=== PATIENT | male | born 2000 | race Caucasian/White ===

== ENCOUNTER 2023-06-04 12:17 | Emergency (ER) | payer OTHER, SELFPAY ==
[2023-06-04 12:26] VITALS: BP 184/89; PULSE 69; RESP 16; TEMP 37; O2SAT 99; BMI 32.5
[2023-06-04 13:02] VITALS: BP 122/63; PULSE 60; RESP 18; O2SAT 98
--- NOTE | 2023-06-04 13:05 | PC.NURSE ---
Patient reports feeling a burning chest pain on right side when he laughs or burps and that it radiates pain all the way up the right side of his neck. Ellen ruff.
[2023-06-04 13:12] LABS: Add Manual Diff / Slide Review NO; Basophils Absolute Auto 0 /uL (0-100); Basophils Percent Auto 0.3 % (0-2); Eosinophils Absolute Auto 100 /uL (0-450); Eosinophils Percent Auto 1.6 % (2-4); Hematocrit 41.2 % (41-53); Hemoglobin 14.2 g/dL (13.5-17.5); Lymphocytes Absolute Auto 1900 /uL (1100-4500); Lymphocytes Percent Auto 27.4 % (25-40); Mean Corpuscular HGB Conc 34.3 % (30-36); Mean Corpuscular Hemoglobin 30.4 PG (26-34); Mean Corpuscular Volume 88.5 fL (80-100); Monocytes Absolute Auto 500 /uL (0-900); Neutrophils Absolute Auto 4400 /uL (1500-7000); Neutrophils Percent Auto 63.7 % (50-75); Platelet Count 205 X10^3/uL (150-400); Red Blood Cell Count 4.66 X10^6/uL (4.5-5.9); Red Cell Distribution Width 13.1 % (11.6-14.8); White Blood Cell Count 6.8 X10^3/uL (4.5-11.0)
[2023-06-04 13:28] LABS: Alanine Aminotransferase 32 IU/L (<50); Albumin 4.5 g/dL (3.5-5.0); Albumin Globulin Ratio 1.4 (1.0-2.8); Alkaline Phosphatase 74 U/L (38-126); Aspartate Aminotransferase 32 IU/L (17-59); BUN Creatinine Ratio 14.8 (6-22); Bilirubin Total 0.8 mg/dL (0.2-1.3); Blood Urea Nitrogen 16 mg/dL (9-20); Calcium 9.2 mg/dL (8.4-10.2); Carbon Dioxide 26 mmol/L (22-32); Chloride 105 mmol/L (98-107); Creatine Kinase 163 U/L (55-170); Estimated Glomerular Filt Rate > 60 mL/min (>60); Globulin 3.2 g/dL (1.7-4.1); Glucose 89 mg/dL (70-100); HEMOLYSIS < 15 (0-50); Potassium 3.7 mmol/L (3.4-5.1); Sodium 138 mmol/L (137-145); Total Protein 7.7 g/dL (6.3-8.2)
[2023-06-04 13:34] VITALS: BP 111/61; PULSE 60; RESP 20; O2SAT 98
[2023-06-04 13:37] LABS: Troponin I < 0.012 ng/mL (0.01-0.034)
--- NOTE | 2023-06-04 13:59 | ED_ITS ---
<Statement entered by Mauricio Barlow MD - 06/04/23 18:14> I was available for consultation during this patient's time in the ER but not consulted. My review of this chart is my first interaction with this patient's presentation. HPI - Burn/Smoke Inhalation General Chief complaint: Burn/Smoke Inhalation Stated complaint: electric shock Time Seen by Provider: 06/04/23 13:01 Source: patient Mode of arrival: Ambulatory History of Present Illness HPI Narrative: 22-year-old male with no reported past medical history presents to the ED status post a electrical shock injury sustained at work just prior to arrival. Patient is in the [employer], was working on a jet with some wet equipment when he accidentally sustained an electric shock to his right hand. Patient states it was very brief and lasted literally half a second. Patient denies any chest pain, shortness of breath, nausea, vomiting, ruano. No loss of consciousness. Patient does endorse some muscle soreness going from his right hand all the way up to his right shoulder and neck. Related Data Allergies Allergy/AdvReac Type Severity Reaction Status Date / Time Penicillins Allergy Verified 06/04/23 12:32 Review of Systems Constitutional Constitutional: Denies chills, Denies fatigue, Denies fever(s), Denies frequent falls, Denies lethargy and Denies weakness Eyes Eyes: Denies change in vision, Denies eye discharge, Denies irritation and Denies loss of vision ENT Ears, Nose, Mouth, and Throat: Denies change in voice, Denies dizziness, Denies neck pain, Denies sore throat and Denies throat swelling Cardiovascular Cardiovascular: Denies chest pain, Denies irregular heart rhythm, Denies lightheadedness, Denies palpitations, Denies dyspnea, Denies dyspnea on exertion and Denies orthopnea Respiratory Respiratory: Denies cough, Denies dyspnea, Denies dyspnea on exertion and Denies wheezing Gastrointestinal Gastrointestinal: Denies abdominal pain, Denies change in bowel habits, Denies diarrhea, Denies nausea and Denies vomiting Musculoskeletal Musculoskeletal: Denies neck pain and Denies numbness Comments: Right arm and shoulder pain Integumentary/Breasts Skin/Breast: Denies pruritus, Denies erythema, Denies rash and Denies wounds Neurologic Neurologic: Denies behavioral changes, Denies confusion, Denies dizziness, Denies frequent falls, Denies loss of vision, Denies numbness and Denies weakness Psychiatric Psychiatric: Denies anxiety, Denies behavioral changes, Denies confusion, Denies depression, Denies homicidal ideation and Denies suicidal ideation Endocrine Endocrine: Denies fatigue, Denies flushing and Denies palpitations Hematologic/Lymphatic Hematologic/Lymphatic: Denies easy bruising Allergic/Immunologic Allergic/Immunologic: Denies urticaria, Denies throat swelling and Denies wheezing Patient History Social History Smoking Status: Never smoker Smoking Status: Never smoker Substance Use Type: does not use Exam Narrative Exam Narrative: Const General:?cooperative, healthy appearing and comfortable [facility] Head:?normal to inspection Ears:?hearing grossly normal bilaterally Nose:?external nose normal Face and sinus:?normal facial exam and sinuses nontender Mouth:?oral mucosae normal Throat:?posterior oropharynx normal Eyes General:?appearance normal, both eyes and all related structures Neck Neck:?normal visual inspection and no lymphadenopathy noted Resp Effort & Inspection:?normal respiratory effort Auscultation:?clear to auscultation bilaterally Cardio Rate:?regular rate Rhythm:?regular rhythm Musculoskeletal There is full range of motion of right arm and shoulder. No bruising, deformities, swelling, tenderness to palpation. No burn injuries noted. Neurovascularly intact. Neuro General:?patient alert, patient awake and patient oriented x3 Initial Vital Signs Initial Vital Signs: Vital Signs Temperature 98.6 F 06/04/23 12:26 Pulse Rate 69 06/04/23 12:26 Respiratory Rate 16 06/04/23 12:26 Blood Pressure 184/89 H 06/04/23 12:26 Pulse Oximetry 99 06/04/23 12:26 Oxygen Delivery Method Room Air 06/04/23 12:26 Course Orders Ordered: ED Orders 06/04/23 12:37 EKG-12 Lead Stat 06/04/23 12:51 Complete Blood Count AUTO DIFF Stat Comprehensive Metabolic Panel Stat Creatine Kinase Stat Troponin I Stat 06/04/23 13:10 Urinalysis and Microscopic Stat Vital Signs Vital signs: Vital Signs - 8 hr 06/04/23 12:26 06/04/23 13:02 06/04/23 13:34 Temperature 98.6 F Pulse Rate 69 60 60 Respiratory Rate 16 18 20 Blood Pressure 184/89 H 122/63 111/61 Pulse Oximetry 99 98 98 Oxygen Delivery Method Room Air Room Air Room Air 06/04/23 14:10 Temperature Pulse Rate 60 Respiratory Rate 15 Blood Pressure 124/67 Pulse Oximetry 99 Oxygen Delivery Method Room Air MDM - Burn/Smoke Inhalation Lab Data 06/04/23 12:51 06/04/23 12:51 Labs: Lab Results 06/04/23 06/04/23 Range/Units 12:51 13:15 WBC 6.8 (4.5-11.0) X10^3/uL RBC 4.66 (4.5-5.9) X10^6/uL Hgb 14.2 (13.5-17.5) g/dL Hct 41.2 (41-53) % MCV 88.5 (80-100) fL MCH 30.4 (26-34) PG MCHC 34.3 (30-36) % RDW 13.1 (11.6-14.8) % Plt Count 205 (150-400) X10^3/uL Neut % (Auto) 63.7 (50-75) % Lymph % (Auto) 27.4 (25-40) % [place] % (Auto) 7.0 (3-14) % Eos % (Auto) 1.6 L (2-4) % Baso % (Auto) 0.3 (0-2) % Neut # (Auto) 4400 (6389-0850) /uL Lymph # (Auto) 1900 (8144-9246) /uL [place] # (Auto) 500 (0-900) /uL Eos # (Auto) 100 (0-450) /uL Baso # (Auto) 0 (0-100) /uL Sodium 138 (137-145) mmol/L Potassium 3.7 (3.4-5.1) mmol/L Chloride 105 (98-107) mmol/L Carbon Dioxide 26 (22-32) mmol/L BUN 16 (9-20) mg/dL Creatinine 1.08 (0.66-1.25) mg/dL Estimated GFR > 60 (>60) mL/min BUN/Creatinine Ratio 14.8 (6-22) Glucose 89 (70-100) mg/dL Calcium 9.2 (8.4-10.2) mg/dL Total Bilirubin 0.8 (0.2-1.3) mg/dL AST 32 (17-59) IU/L ALT 32 (<50) IU/L Alkaline Phosphatase 74 (38-126) U/L Total Creatine Kinase 163 (55-170) U/L Troponin I < 0.012 (0.01-0.034) ng/mL Total Protein 7.7 (6.3-8.2) g/dL Albumin 4.5 (3.5-5.0) g/dL Globulin 3.2 (1.7-4.1) g/dL Albumin/Globulin Ratio 1.4 (1.0-2.8) Urine Color Yellow Urine Appearance Clear Urine pH 6.5 (4.5-8.0) Ur Specific [place] 1.015 (1.000-1.035) Urine Protein Negative (Negative) Urine Glucose (UA) Negative (Negative) g/dL Urine Ketones Negative (NEGATIVE) Urine Occult Blood Negative (Negative) Urine Nitrate Negative (Negative) Urine Bilirubin Negative (NEGATIVE) Urine Urobilinogen 0.2 (0.2) E.U./dL Ur Leukocyte Esterase Negative (NEGATIVE) Urine RBC None seen (0-5/HPF) Urine WBC None seen (0-5/HPF) Ur Squamous Epith Cells None seen (0-5/HPF) Urine Bacteria None seen (None) Ur Culture Indicated? Cult not indicated Vol Urine Centrifuged 10ml (spun) MDM Narrative Medical decision making narrative: 22-year-old male with no reported past medical history presents to the ED status post a electrical shock injury sustained at work just prior to arrival. Will will obtain cardiac workup, labs, urine, r/o rhabdomyolysis. Physical exam is reassuring for no ruano or overt injuries. There is full range of motion of right arm and shoulder. EKG is normal sinus rhythm with a ventricular rate of 66 beats per minute, QT interval of [address] T changes, no axis deviation. Troponin within normal limits. CK within normal limits. No CHRISTIANE, kidney function normal. UA without myoglobinuria. Discussed findings with patient. Recommend supportive care with ibuprofen or Tylenol. ED return precautions discussed with patient. Patient verbalized understanding. Medical records reviewed: Yes Discharge Plan Departure Patient Disposition: Home Clinical Impression: Electrical shock of hand Qualifiers: Encounter type: initial encounter Qualified Code(s): T75.4XXA - Electrocution, initial encounter Instructions: DI for Electric Shock Injuries Activity Restrictions/Additional Instructions: You were evaluated in the ED today for an electric shock that you received your right hand. Your labs, EKG and urine were normal. Your physical exam was also reassuring for no ruano and other injuries. You have some muscle soreness in your right arm and neck due to the electric shock. You may take ibuprofen or Tylenol for your symptoms. Return to the ED if you have worsening symptoms, chest pain, shortness of breath, numbness, tingling, weakness. Referrals: ProviderDhaval [Primary Care Provider] - Stand Alone Forms: Patient Portal/API
[2023-06-04 14:04] LABS: Appearance Urine UA CLEAR; Bilirubin Urine UA NEGATIVE (NEGATIVE); Color Urine UA YELLOW; Glucose Urine UA NEGATIVE (Negative); Ketones Urine UA NEGATIVE (NEGATIVE); Leukocyte Esterase Urine UA NEGATIVE (NEGATIVE); Nitrite Urine UA NEGATIVE (Negative); Occult Blood Urine UA NEGATIVE (Negative); Protein Urine UA NEGATIVE (Negative); Specific Gravity Urine UA 1.015 (1.000-1.035); Urine Volume 10mL (spun); Urobilinogen Urine UA 0.2 E.U./dL (0.2); pH Urine UA 6.5 (4.5-8.0)
[2023-06-04 14:07] LABS: Bacteria Urine None Seen; RBC Urine None Seen (0-5/HPF); WBC Urine None Seen (0-5/HPF)
[2023-06-04 14:08] LABS: Culture Indicated Urine Cult Not Indicated; Squamous Epithelial Cell Urine None Seen (0-5/HPF)
[2023-06-04 14:10] VITALS: BP 124/67; PULSE 60; RESP 15; O2SAT 99
== END 2023-06-04 14:24 | disposition home or self-care (01) ==
PROVIDERS: Emergency Medicine; Emergency Provider Student in an Organized Health Care Education/Training Program
DX: T75.4XXA Electrocution, initial encounter (principal); W86.1XXA Exposure to industrial wiring, appliances and electrical machinery, initial encounter; Y99.0 Civilian activity done for income or pay
CPT/HCPCS: 36415; 80053; 81001; 82550; 84484; 85025; 93005; 93010; 99283